=== PATIENT | female | born 1945 | race American Indian/Alaskan Native ===

== ENCOUNTER 2022-06-05 05:44 | Emergency (ER) | payer MEDICARE ==
[2022-06-05] MEDS ORDERED: ONDANSETRON 4 MG ODT TAB PO ONE (06:53)
[2022-06-05] MEDS ORDERED: HYDROcodone/ACETAMINOPHEN 5-325 MG TAB PO ONE (06:53)
--- NOTE | 2022-06-05 06:56 | Emergency Department Report ---
HPI - General Chief Complaint: Extremity Injury, Lower Time Seen by Provider: 06/05/22 06:42 - HPI HPI: Room 4 The patient is a 77-year-old female present with chief complaint of bilateral lower extremity pain and headache. Patient states her her headache began yesterday morning with pain in the frontal and bitemporal regions. Patient states her headache has been constant. Patient denies any preceding trauma. Patient currently gives her headache a score of 10-08/2010. Patient states this morning she developed pain in bilateral calfs. Patient again denies preceding trauma. Patient admits to nausea vomiting for 1 day. Patient denies history of fever. Patient currently gives her leg pain a score of "15/10." ED Past Medical Hx - Past Medical History Hx Hypertension: Yes Hx GERD: Yes Hx Renal Disease: Yes (Chronic renal insufficiency) Hx Asthma: Yes - Surgical History Hx Cholecystectomy: Yes Additional Surgical History: Gastric bypass, x2 - Family History Family history: no significant - Social History Smoking Status: Former Smoker (None x20 years) Substance Use Type: Alcohol (Rarely) - Medications Home Medications: Home Medications Medication Instructions Recorded Confirmed Last Taken Type Effexor 37.5 mg PO DAILY 07/31/15 08/01/15 07/31/15 History Lisinopril 20 mg PO DAILY 07/31/15 08/01/15 08/01/15 History Lyrica 75 mg PO TID 07/31/15 08/01/15 07/31/15 History Miralax 3350 1 pack PO DAILY 07/31/15 08/01/15 07/31/15 History ProAir HFA Inhaler 2 inhalation INHALATION BID 07/31/15 08/01/15 07/31/15 History tiZANidine 4 mg PO PRN PRN 07/31/15 07/31/15 Unknown History traMADol 50 mg PO PRN PRN 07/31/15 08/01/15 07/31/15 History Ibuprofen [Motrin 800 MG tab] 800 mg PO Q8HR PRN #20 tablet 06/05/22 Unknown Rx traMADoL [Ultram] 50 mg PO Q6HR PRN #14 tablet 06/05/22 Unknown Rx ED Review of Systems ROS: Stated complaint: NON TRAUMATIC LEG PAIN Other details as noted in HPI Constitutional: no symptoms reported Eyes: denies: eye pain ENT: denies: throat pain Respiratory: no symptoms reported Cardiovascular: denies: chest pain Endocrine: no symptoms reported Gastrointestinal: nausea, vomiting Genitourinary: denies: dysuria Musculoskeletal: myalgia. denies: back pain Neurological: headache Physical Exam - Physical Exam Vital Signs: Vital Signs 06/05/22 06:02 Temperature 98.9 F Pulse Rate 69 Respiratory 20 Rate Blood Pressure 145/67 [Left] O2 Sat by Pulse 100 Oximetry Physical Exam: GENERAL: The patient is well-developed well-nourished female lying on stretcher not appearing to be in acute distress. [] HEENT: Normocephalic. Atraumatic. Extraocular motions are intact. Patient has moist mucous membranes. NECK: Supple. Trachea midline CHEST/LUNGS: Clear to auscultation. There is no respiratory distress noted. HEART/CARDIOVASCULAR: Regular. There is no tachycardia. There is no gallop rub or murmur. 2+ DPs bilateral ABDOMEN: Abdomen is soft, nontender. Patient has normal bowel sounds. There is no abdominal distention. SKIN: There is no rash. There is no edema. There is no diaphoresis. NEURO: The patient is awake, alert, and oriented. The patient is cooperative. The patient has no focal neurologic deficits. The patient has normal speech. GCS 15 MUSCULOSKELETAL: There is no tenderness to palpation of bilateral calf. There is no evidence of acute injury. ED Course Vital Signs 06/05/22 06:02 Temperature 98.9 F Pulse Rate 69 Respiratory 20 Rate Blood Pressure 145/67 [Left] O2 Sat by Pulse 100 Oximetry ED Medical Decision Making - Radiology Data Radiology results: report reviewed (CT head, bilateral lower extremity Dopplers), image reviewed (CT head, bilateral lower extremity Dopplers) [facility] [address] [place] [address] Cat Scan Report Signed Patient: GUANAKITO BARTON MR#: [id number] : 1945 Acct:[id number] Age/Sex: 77 / F ADM Date: 06/05/22 Loc: ED Attending Dr: Ordering Physician: FANTA MIGUEL MD Date of Service: 06/05/22 Procedure(s): CT head/brain wo con Accession Number(s): [id number] cc: FANTA MIGUEL MD CT head/brain wo con INDICATION: Headache. TECHNIQUE: CT head. All CT scans at this location are performed using CT dose reduction for ALARA by means of automated exposure control. COMPARISON: None. FINDINGS: Intracranial: Caballero-white matter differentiation is maintained. No intracranial hemorrhage. No extra axial collection. No hydrocephalus. No herniation. Sinuses: Paranasal sinuses and mastoid air cells are essentially clear. Orbits: Globes are intact. Calvarium: No acute fracture. IMPRESSION: 1. No acute intracranial abnormality. Signer Name: Ramon Ballesteros MD Signed: 06/05/2022 8:07 AM Workstation Name: [id number] Transcribed By: CS Dictated By: Ramon Ballesteros MD Electronically Authenticated By: Ramon Ballesteros MD Signed Date/Time: 06/05/22806 DD/ 5 TD/TT: [facility] [address] [place] [address] Vascular Lab Report Signed Patient: GUANAKITO BARTON MR#: [id number] : 1945 Acct:[id number] Age/Sex: 77 / F ADM Date: 06/05/22 Loc: ED Attending Dr: Ordering Physician: FANTA MIGUEL MD Date of Service: 06/05/22 Procedure(s): VL venous duplex LE BILAT Accession Number(s): [id number] cc: FANTA MIGUEL MD DUPLEX DOPPLER LOWER EXTREMITY VEINS, BILATERAL INDICATION / CLINICAL INFORMATION: Bilateral lower extremity pain. TECHNIQUE: Duplex doppler imaging was performed through the veins of both lower extremities using venous compression and other maneuvers. COMPARISON: None available. FINDINGS: RIGHT COMMON FEMORAL VEIN: Negative. RIGHT FEMORAL VEIN: Negative. RIGHT POPLITEAL VEIN: Negative. RIGHT CALF VEINS: Negative. LEFT COMMON FEMORAL VEIN: Negative. LEFT FEMORAL VEIN: Negative. LEFT POPLITEAL VEIN: Negative. LEFT CALF VEINS: Negative. ADDITIONAL FINDINGS: None. IMPRESSION: 1. No sonographic evidence for DVT in either lower extremity. Signer Name: Jaky Rodriguez MD Signed: 06/05/2022 9:19 AM Workstation Name: [id number] Transcribed By: Dictated By: JAKY RODRIGUEZ MD Electronically Authenticated By: JAKY RODRIGUEZ MD Signed Date/Time: 06/05/22918 DD/ 8 TD/TT: - Differential Diagnosis Headache, ICH, myalgias, DVTs, Critical care attestation.: If time is entered above; I have spent that time in minutes in the direct care of this critically ill patient, excluding procedure time. ED Disposition Clinical Impression: Headache, Leg pain Disposition: HOME / SELF CARE / HOMELESS Is pt being admited?: No Does the pt Need Aspirin: No Condition: Stable Instructions: Pain Without a Known Cause Additional Instructions: Return to the emergency department should you develop worsening symptoms, inability to tolerate food or liquids, high fever or any other concerns Prescriptions: Ibuprofen [Motrin 800 MG tab] 800 mg PO Q8HR PRN #20 tablet PRN Reason: Pain , Severe (7-10) traMADoL [Ultram] 50 mg PO Q6HR PRN #14 tablet PRN Reason: Pain Referrals: PAUL FOREMAN MD [Primary Care Provider] - 3-5 Days IVETTE MONTGOMERY MD [Staff Physician] - 3-5 Days (Dr. Montgomery is an orthopedic surgeon. Please follow-up with him for further evaluation if your pain persists) Time of Disposition: 10:53
[2022-06-05] MEDS ORDERED: ALBUTEROL 2.5 MG/3 ML NEBU IH ONE (07:30)
[2022-06-05] MEDS ORDERED: IPRATROPIUM 0.02% NEBU 2.5 ML IH ONE (07:30)
--- NOTE | 2022-06-05 08:11 | Cat Scan Report ---
CT head/brain wo con INDICATION: Headache. TECHNIQUE: CT head. All CT scans at this location are performed using CT dose reduction for ALARA by means of automated exposure control. COMPARISON: None. FINDINGS: Intracranial: Caballero-white matter differentiation is maintained. No intracranial hemorrhage. No extra a xial collection. No hydrocephalus. No herniation. Sinuses: Paranasal sinuses and mastoid air cells are essentially clear. Orbits: Globes are intact. Calvarium: No acute fracture. IMPRESSION: 1. No acute intracranial abnormality. Signer Name: Ramon Ballesteros MD Signed: 06/05/2022 8:07 AM Workstation Name: [email or web address]
--- NOTE | 2022-06-05 09:24 | Vascular Lab Report ---
DUPLEX DOPPLER LOWER EXTREMITY VEINS, BILATERAL INDICATION / CLINICAL INFORMATION: Bilateral lower extremity pain. TECHNIQUE: Duplex doppler imaging was performed through the veins of both lower extremities using mark ous compression and other maneuvers. COMPARISON: None available. FINDINGS: RIGHT COMMON FEMORAL VEIN: Negative. RIGHT FEMORAL VEIN: Negative. RIGHT POPLITEAL VEIN: Negative. RIGHT CALF VEINS: Negative. LEFT COMMON FEMORAL VEIN: Negative. LEFT FEMORAL VEIN: Negative. LEFT POPLITEAL VEIN: Negative. LEFT CALF VEINS: Negative. ADDITIONAL FINDINGS: None. IMPRESSION: 1. No sonographic evidence for DVT in either lower extremity. Signer Name: Gurvinder Rodriguez MD Signed: 06/05/2022 9:19 AM Workstation Name: [id number] [id number]
[2022-06-05 10:18] VITALS: BP 127/74
== END 2022-06-05 11:17 | disposition home or self-care (01) ==
LOC: ED 05:44
DX: R51.9 Headache, unspecified (principal); M79.605 Pain in left leg; M79.604 Pain in right leg; I10 Essential (primary) hypertension; J45.909 Unspecified asthma, uncomplicated; Z87.891 Personal history of nicotine dependence
CPT/HCPCS: 70450; 93970; 94640; 94644; 99284; J3490; Q0162